=== PATIENT | male | born 1940 | race Caucasian/White ===

== ENCOUNTER → 2016-06-27 | Outpatient (CLI) | payer MEDICARE ==
[~2016-06-27] MED LIST: ASPIRIN325 M2 PO; AUGMENTIN 875 M1 TAB PO; CARAFATE1 G1 PO; COREG12.5 MG PO; COREG25 MG PO; LIPITOR80 MG PO; LISINOPRIL2.5 MG PO; LISINOPRIL40 MG PO; PREDNISONE10 MG PO; PRILOSEC40 MG PO; Peridex 473 ML473 ML PO; VENTOLIN H0.09 MG/AC INH; VIBRAMYCIN100 MG PO; VITAMIN B12500 MCG PO; VITAMIN D50000 I3 PO
== END | disposition home or self-care (01) ==
LOC: RESCLI 02:51
DX: I25.10 Atherosclerotic heart disease of native coronary artery without angina pectoris (principal); J45.30 Mild persistent asthma, uncomplicated; I10 Essential (primary) hypertension; E78.5 Hyperlipidemia, unspecified

== ENCOUNTER 2016-08-28 16:21 | Inpatient (IN) | payer MEDICARE ==
[~2016-08-28] VITALS: Ht 185.4 cm; Wt 91.6 kg
--- NOTE | ~2016-08-28 | CON ---
[place], [place] REPORT OF CONSULTATION NAME: RAVINDER LLANES UNIT #: [id number] ROOM: 421 DOCTOR: XUAN HOWARD,YUKI BIRTHDATE: [birth year] DOS: 08/29/2016 GASTROENDOSCOPIC REPORT HISTORY OF PRESENT ILLNESS: The patient is a 76-year-old who has presented with chief complaint of shortness of breath and had abnormal lab results H and H of 7 and 25, microcytic. The patient had to be admitted for definitive evaluation. Electrolytes, BUN and creatinine 20 and 1.3. Electrolytes were balanced. His B12 and folate within normal limit. Troponin level normal. His iron level was 17, low. Troponin repeatedly remained normal. CBC differential after transfusion, improved to 9 and 30. Chest x-ray, no pneumonia. PAST MEDICAL HISTORY: Associated with COPD, chronic renal insufficiency, congestive heart failure, shortness of breath, anemia, hypertension, subdural hematoma. PAST SURGICAL HISTORY: Coronary artery stents. SOCIAL HISTORY: Smoker up to 8 years ago, drinking of alcohol a case of beer and fifth of whiskey per week. ALLERGIES: No known medications. MEDICATIONS: Medication list has been reviewed including omeprazole and aspirin 325 mg. REVIEW OF SYSTEMS: HEENT: Denies double vision, blurred vision. RESPIRATORY: Prior to readmission shortness of breath, cough. CARDIOVASCULAR: Denies chest pain. DIGESTIVE SYSTEM: No hematemesis, no hematochezia. PHYSICAL EXAMINATION: VITAL SIGNS: Stable. HEENT: Head normocephalic, nontraumatic. Mouth and buccal mucosa benign. NECK: Supple, no thyromegaly, no cervical lymphadenopathy. CHEST: Symmetric anatomy, decreased air entry. No wheeze, no rhonchi or coughing. HEART: Normal sinus rhythm, no gallop, no murmur. ABDOMEN: Obese, soft. No hepato-organomegaly. Bowel sounds present. No pulsatile mass. EXTREMITIES: No cyanosis. No pedal edema. NEUROLOGIC: Alert, oriented to time, place and person. IMPRESSION: Shortness of breath with anemia, microcytic indices. OTHER ADJUNCTIVE DIAGNOSES: As outlined in paragraph past medical, surgical history including hypertension, coronary artery disease, COPD, renal insufficiency. [place], [place] REPORT OF CONSULTATION NAME: RAVINDER LLANES Bassam UNIT #: [id number] ROOM: 421 DOCTOR: XUAN HOWARD,YUKI BIRTHDATE: [birth year] IMPRESSION AND PLAN: Congestive for earlier, patient does not want to have a colonoscopic an EGD evaluation at this time, rightfully so he is too short of breath and coughing, he wants to wait until these issues are addressed and reassessment in future. YUKI GOVEA MD CM:CONSTR:REPORT OF CONSULTATION 04 08/30/16 0726 interface
--- NOTE | ~2016-08-28 | PR ---
[place], [place] PROGRESS NOTE NAME: RAVINDER LLANES UNIT #: [id number] ROOM: 421 DOCTOR: ELI LESTER MD BIRTHDATE: [birth year] DOS: 09/01/2016 SUBJECTIVE: He was seen and examined on 09/01/2016. He has been noted comfortable. The patient was planned for colonoscopy to be done today. He has been noted without any symptoms of chest pain or any abdominal pain. Shortness of breath and wheezing were noted partially decreased in the last 24 hours. OBJECTIVE: VITAL SIGNS: For the patient which has been recorded showed normal temperature, respiratory rate 20, heart rate 55-62, blood pressure 145/79-123/56. The pulse oxygen saturation on 2 liters nasal cannula 99% saturation recorded. HEENT: Shows no acute change. CARDIOVASCULAR SYSTEM: S1, S2 audible. LUNGS: Noted with mild wheezing. Moderate reduction in the breath sounds bilaterally. ABDOMEN: Soft and nontender. LABORATORY DATA: The PT, PTT for this patient was noted as normal today. BMP this morning noted with normal BUN and creatinine. Creatinine improved from 1.3 that was noted yesterday. CBC: Hemoglobin 9.7, hematocrit 32.7, platelet count were normal, WBC count was normal. IMPRESSION: 1. The patient who has been currently treated for this at this time for the acute exacerbation of bronchial asthma with acute tracheobronchitis. 2. Past history of nicotine dependence. The patient was noted positive improvement in the symptoms. 3. Incidental finding of 3 mm right upper lung pulmonary nodule. PLAN OF TREATMENT: Continue the current plan of management from the pulmonary standpoint, no changes in treatment to be done. Solu-Medrol dose could be decreased from tomorrow morning to 60 mg b.i.d. depends on further improvement in the respiratory symptoms. Usual care. All other supportive therapy, plan of management and care. [place], [place] PROGRESS NOTE NAME: RAVINDER LLANES UNIT #: [id number] ROOM: 421 DOCTOR: ELI LESTER MD BIRTHDATE: [birth year] ELI FUENTES MD CM:PNTRANS [phone] ELI MURRELL MD 09/02/16 0240 interface
--- NOTE | ~2016-08-28 | CON ---
[place], [place] REPORT OF CONSULTATION NAME: RAVINDER LLANES UNIT #: [id number] ROOM: 421 DOCTOR: YUKI GOVEA MD BIRTHDATE: [birth year] DOS: 09/01/2016 GASTROENDOSCOPIC REPORT HISTORY OF PRESENT ILLNESS: A 76-year-old who has been admitted through the Emergency Room with shortness of breath, anemia, hemoglobin of 7. Now I have been asked for assessment of the patient in this regard. The patient is status post transfusion. PAST MEDICAL HISTORY: Associated with systolic dysfunction, anxiety, depression, anemia, bronchial asthma. PAST SURGICAL HISTORY: Cardiac catheterization and stent, minor surgeries. SOCIAL HISTORY: smoker till 2007. MEDICATIONS: List has been reviewed. ALLERGIES: No known medication. REVIEW OF SYSTEMS: In general, HEENT: Denies double vision, blurred vision. RESPIRATORY: Admits to shortness of breath. CARDIOVASCULAR: Denies chest pain. DIGESTIVE SYSTEM: No hematemesis, no hematochezia. Anemic, however. Status post transfusion. PHYSICAL EXAMINATION: VITAL SIGNS: Stable. HEENT: Head normocephalic, nontraumatic. Mouth and buccal mucosa benign. NECK: Supple, no thyromegaly. CHEST: Symmetric anatomy, equal expansion. No wheeze, no rhonchi. HEART: Normal sinus rhythm, no gallop, no murmur. ABDOMEN: Soft. No hepato-organomegaly. Bowel sounds present. No pulsatile mass. EXTREMITIES: No cyanosis, no pedal edema. NEUROLOGIC: Alert, oriented to time, place and person. LABORATORY DATA: Reviewed. Records reviewed. His latest CBC, status post transfusion has improved to 9.7 and 32. Microcytic indices; however, . Platelet count has been normal. His basic metabolic panel: BUN and creatinine normal. Potassium of 3.2, has been identified. INR of 1.0 noticed. PLAN AND DISCUSSION: We are going to proceed with panendoscopy, colonoscopy. [place], [place] REPORT OF CONSULTATION NAME: RAVINDER LLANES Bassam UNIT #: [id number] ROOM: 421 DOCTOR: YUKI GOVEA MD BIRTHDATE: [birth year] YUKI GOVEA MD CM:CONSTR:REPORT OF CONSULTATION 1718 09/02/16 0553 interface
--- NOTE | ~2016-08-28 | CON ---
[place], [place] REPORT OF CONSULTATION NAME[id number] UNIT #: [id number] ROOM: 421 DOCTOR: EIL LESTER MD BIRTHDATE: [birth year] DOS: 08/31/2016 PULMONARY CONSULTATION EVALUATION AND MANAGEMENT REASON FOR CONSULTATION: To assess the patient for acute ongoing respiratory complaints of the patient with shortness of breath. HISTORY OF PRESENT ILLNESS: This is a 76-year-old white male, who has been admitted under the care of the Hospitalist Services on 08/28/2016. The patient presented to the hospital on 08/28/2016 in the Emergency Room. He has been noted with symptoms of increased shortness of breath, had been occurring for approximately 1 month. The patient was also noted to have symptoms of coughing, which are described mild to moderate without any sputum expectoration. He has been noted to have symptoms of chest congestion. The wheezing was also described at times. The patient denies any symptoms of hemoptysis. The patient has been noted with hemoglobin of 7.1 and other problems on assessment in the Emergency Room and was hospitalized for further medical management. REVIEW OF SYSTEMS: CONSTITUTIONAL: He does have symptoms of fatigue and tiredness. Denies symptoms of fever or chills. EYES: Denies any burning, redness, or tenderness. EARS, NOSE, AND THROAT: No symptoms of sore throat, hoarseness, otalgia, or postnasal drainage. CARDIOVASCULAR: The patient does have symptoms of some edema of the lower extremities at times. GASTROINTESTINAL: Denies nausea, vomiting, diarrhea, abdominal pain, hematemesis, melena, or hematochezia. SKIN: No lesions or rashes. CENTRAL NERVOUS SYSTEM: No dizziness, headache, or diplopia. Remaining systems were reviewed with the patient, they were noted all negative. PAST MEDICAL HISTORY: For this patient was noted as: 1. History of past known uncomplicated, mild persistent bronchial asthma. 2. Hypercholesterolemia. 3. Generalized anxiety disorder and depression. 4. Pulmonary nodules for this patient, which had been known with a past CT scan of the chest for this patient that was done for the patient in March CT scan of the chest. It shows a 3 mm nodule for the patient, it was noted in the right upper lobe as well with calcified granuloma noted in the spleen as well as some calcifications of the lymph nodes for the patient was also noted. Pleural thickening for this patient was also noted with evidence of subpleural blebs and some other areas of scarring. 5. History of generalized anxiety disorder and depression. PAST SURGICAL HISTORY: For this patient was noted as: 1. Cardiac catheterization and coronary artery stent insertion in 2007. 2. Removal of a cyst from the skin. SOCIAL HISTORY: For this patient was noted as the patient is , has 2 [place], [place] REPORT OF CONSULTATION NAME: RAVINDER LLANES UNIT #: [id number] ROOM: [facility] DOCTOR: ELI LESTER MD BIRTHDATE: [birth year] children. Smoking for this patient noted since the age of [age] years old, a pack of cigarettes per day until 2007. FAMILY HISTORY: For this patient, father at the age of 7272 years old from acute myocardial infarction. Mother at the age of 8282 years old from complication of ALS. HOME MEDICATIONS: For the patient were reported as use of Ventolin HFA inhaler, aspirin, Lipitor, lisinopril, vitamin B12, Coreg, omeprazole, and past use of QVAR which has not been continued for the patient. ALLERGIES: The drug allergy history for this patient was noted as no known drug allergies. PHYSICAL EXAMINATION: GENERAL: This is a 76-year-old white male, who has been currently noted to be awake and alert at the time of the assessment. VITAL SIGNS: Height of 6 feet 1 inch, weight of 202 pounds, BMI of 26.6. Vital signs shows the temperature recorded yesterday at 100.4 degrees Fahrenheit to normal temperature, respiratory rate 18-20, heart rate 78-85. Blood pressures 161/66, 136/76. The intake was 1340, output was 476 mL. Pulse oxygen saturation on 2 L nasal cannula was 96% saturation. HEENT: Examination shows head was atraumatic. NECK: Supple. CARDIOVASCULAR: S1, S2 are audible. LUNGS: For this patient was noted with moderate decreased breath sounds with diffuse expiratory wheezing noted in moderate severity. No crackles were heard. ABDOMEN: Soft, nontender, bowel sounds present. EXTREMITIES: Show no edema, clubbing, or cyanosis. CENTRAL NERVOUS SYSTEM: Cranial nerves 2-12 intact. SKIN: No lesions or rashes. MUSCULOSKELETAL: No acute deformities. LABORATORY DATA: CBC of the patient that was done for the patient on admission on 08/28/2016, hemoglobin 7.1, hematocrit 25, WBC count and platelet count were normal. BMP of the patient on 08/28/2016, BUN 20, creatinine 1.31. The BMP of the patient repeated again was noted normal BUN and creatinine for this patient on the 7th. CBC of the patient that was done this morning, hemoglobin 9.9, hematocrit 32.8, platelet count was normal, WBC count was normal after previous blood transfusion given on this admission. BMP this morning, BUN of 20, creatinine of 1.36 noted. The review of the Radiology data for this patient on this admission pertinent with the chest for this patient, chest x-ray of the patient that was done on 08/29/2016. The patient does not show any acute pulmonary infiltration with hyperinflation. Another x-ray repeated for this patient, which has been noted with increased pulmonary venous congestion possibility of congestive heart failure as well. IMPRESSION: [place], [place] REPORT OF CONSULTATION NAME: RAVINDER LLANES UNIT #: [id number] ROOM: 421 DOCTOR: [facility] BIRTH[facility]: [birth year] 1. The patient who has been currently noted with acute exacerbation of bronchial asthma with acute tracheobronchitis with past history of nicotine abuse. The patient has been noted with partial improvement in symptoms in the last 48 hours. The cough has been noted to be nonproductive at this time, most of the time, and noted mild to moderate in severity. 2. The patient with chronic lower back pain and other problems. 3. The patient with findings of a 3 mm right upper lung pulmonary nodule, and calcified lymphadenopathy is an old finding. PLAN OF TREATMENT: Continue current antibiotics, bronchodilators, use of Mucinex, and corticosteroids. The corticosteroid dose will be gradually reduced based on the improvement in the symptoms. The patient should show resolution of the current acute exacerbation in the next couple of days or hopefully prior to home discharge. Continued abstinence from tobacco use was advised. Other previous treatment plan and management as well. Usual care. Other supportive care and therapies. ELI FUENTES MD CM:CONSTR:REPORT OF CONSULTATION 1530 09/01/16 0129 interface
--- NOTE | ~2016-08-28 | O ---
[place], [place] OPERATIVE NOTE NAME: RAVINDER LLANES UNIT #: [id number] ROOM: 421 DOCTOR: XUAN HOWARDSANDEEPATLANTANIMA BIRTHDATE: [birth year] DOS: 09/01/2016 GASTROENDOSCOPIC REPORT INDICATIONS: A 76-year-old patient who has presented with chief complaint of anemia, status post multiple transfusions, COPD, respiratory insufficiency. PROCEDURE: Today's procedure part of investigation is EGD and colonoscopy in search of anemia etiology. REPORT: After putting the patient in the left lateral position and application of lubricant to the scope, the scope was introduced; thereafter, under direct visualization, I advanced through the length of esophagus without difficulty. A small hiatal hernia was noticed. Gastric pouch was entered, gastritis seen. Antral biopsy was obtained. Duodenal bulb, second and third part within normal limits. Scope was gradually withdrawn along the lesser curvature. The patient extubated, tolerated procedure well. IMPRESSION: Small hiatal hernia, gastritis, status post biopsy. PLAN AND DISCUSSION: We are going to proceed with colonoscopic eval. Thank you. GASTROENDOSCOPIC REPORT INDICATIONS: The patient is a 76-year-old who is status-post transfusion, anemia, hemoglobin of 7. PROCEDURE: Today's procedure part of investigation is colonoscopy, plus multiple polypectomy and tattoo marking. PREMEDICATION: Versed and Diprivan. SCOPE: Olympus forward-viewing colonoscope 10L video. REPORT: After putting the patient in left lateral position and application of lubricant to the scope, the scope was introduced; thereafter under direct visualization, I advanced through the length of colon without difficulty. A polypoid lesion in sigmoid colon with snare was polypectomized. The site was tattoo marked. Diverticulosis of moderate degree was identified. Base of the cecum explored. Sessile polypoid lesions in this area with cold cut snare polypectomy removed, samples recovered. The patient extubated, tolerated procedure well. IMPRESSION: Diverticulosis, large polypoid lesion in sigmoid colon, status-post polypectomy and tattoo marking. Multiple small sessile polyps at the base of cecum, status-post cold cut snare polypectomies. [place], [place] OPERATIVE NOTE NAME: RAVINDER LLANES Bassam UNIT #: [id number] ROOM: 421 DOCTOR: XUAN HOWARD,YUKI BIRTHDATE: [birth year] PLAN AND DISCUSSION: Awaiting biopsies, no blood thinners, no anticoagulation until Sunday at least and clinical reassessment. Awaiting pathology report. Thank you very much indeed. YUKI GOVEA MD CM:OPRECORD:OPERATIVE NOTE [id number] YUKI GOVEA MD 09/01/167 interface
--- NOTE | ~2016-08-28 | PR ---
[place], [place] PROGRESS NOTE NAME: RAVINDER LLANES UNIT #: [id number] ROOM: 421 DOCTOR: GINA MURRELL MD,ELI BIRTHDATE: [birth year] DOS: 09/02/2016 SUBJECTIVE: He was seen and examined on 09/02/2016. He has been noted comfortable with further reduction and improvement in the respiratory symptoms noted with improvement in the coughing and shortness of breath and others. OBJECTIVE: VITAL SIGNS: For the patient which has been recorded shows the temperature noted as normal, respiratory rate 20, heart rate 54, blood pressure 160/74. The pulse oxygen saturation on 4 liters nasal cannula 98% saturation. HEENT: Examination shows no acute change. CARDIOVASCULAR: S1, S2 is audible. LUNGS: Occasional wheezing. No crackles with significant improvement in air entry of yesterday. ABDOMEN: Soft, nontender. LABORATORY DATA: No labs were done today. IMPRESSION: Progressive resolution and improvement has been continued in the respiratory symptom for this patient at this time for acute exacerbation of chronic obstructive pulmonary disease, acute tracheobronchitis. PLAN OF TREATMENT: No changes in the plan of management from the pulmonary standpoint. Continuation of the current treatment plan and management. The patient may be considered for discharge from the pulmonary standpoint if necessary with oral antibiotics and tapering dose of prednisone and to continue his home medications as previously. Other supportive plan and management as well. Usual care. ELI FUENTES MD CM:PNTRANS [phone] ELI MURRELL MD 09/03/16 0145 interface
[2016-08-28 15:40] LABS: BASO % 0.5 % (0.0-1.0); EOS # 0.2 10*3/uL (0.0-0.4); EOS % 3.4 % (1.0-4.0); HEMOGLOBIN 7.1 g/dl (14.0-18.0); LYMPH # 0.9 10*3/uL (1.3-4.4); LYMPH % 15.6 % (27.0-41.0); MEAN CELL VOLUME 69.6 fl (80.0-94.0); MEAN CORPUSCULAR HGB 19.8 pg (27.0-31.0); MEAN CORPUSCULAR HGB CONC 28.4 g/dl (33.0-37.0); MEAN PLATELET VOLUME 10.6 fl (9.6-12.3); MONO # 0.5 10*3/uL (0.1-1.0); MONO % 8.3 % (3.0-9.0); NEUT % 71.7 % (47.0-73.0); PLATELET COUNT AUTOMATED 268 10*3/uL (130-400); RED BLOOD COUNT 3.59 10*6/uL (4.50-5.90); RED CELL DISTRI WIDTH 16.8 % (0-14.5); WHITE BLOOD COUNT 5.5 10*3/uL (4.8-10.8)
[2016-08-28 15:52] LABS: BUN 20 mg/dl (7-24); CARBON DIOXIDE 22 mmol/L (21-32); CHLORIDE 108 mmol/L (98-107); EST GLOM FILT AFRICAN AMERICAN > 60 ml/min; GLUCOSE 108 mg/dL (65-99); POTASSIUM 3.6 mmol/L (3.5-5.1); SODIUM 142 mmol/L (136-145)
[2016-08-28 15:57] LABS: FREE T4 1.09 ng/dl (0.76-1.46)
[~2016-08-28 16:21] MED LIST changes: -COREG25 MG PO; -LISINOPRIL40 MG PO; -PREDNISONE10 MG PO; -VIBRAMYCIN100 MG PO; -VITAMIN D50000 I3 PO
[2016-08-28] MEDS ORDERED: LISINOPRIL40 MG PO (16:28)
[2016-08-28 16:34] LABS: VITAMIN D, 25-HYDROXY 6.9 ng/mL (30-100)
[2016-08-28 16:35] LABS: FOLIC ACID 5.68 ng/mL (>5.38)
[2016-08-28 18:26] LABS: IRON 17 ug/dL (65-175); IRON SATURATION 4 %; UIBC 335 ug/dL (110-410)
[2016-08-28] MEDS ORDERED: COREG25 MG PO (18:54)
[2016-08-29 05:55] LABS: BUN 16 mg/dl (7-24); CARBON DIOXIDE 26 mmol/L (21-32); CHLORIDE 105 mmol/L (98-107); EST GLOM FILT AFRICAN AMERICAN > 60 ml/min; GLUCOSE 96 mg/dL (65-99); POTASSIUM 3.2 mmol/L (3.5-5.1); SODIUM 142 mmol/L (136-145)
[2016-08-29 06:04] LABS: BASO % 0.6 % (0.0-1.0); EOS # 0.2 10*3/uL (0.0-0.4); EOS % 2.7 % (1.0-4.0); HEMATOCRIT 30.3 % (42.0-52.0); LYMPH # 0.8 10*3/uL (1.3-4.4); LYMPH % 11.9 % (27.0-41.0); MEAN CORPUSCULAR HGB 22.1 pg (27.0-31.0); MEAN CORPUSCULAR HGB CONC 30.4 g/dl (33.0-37.0); MEAN PLATELET VOLUME 10.7 fl (9.6-12.3); MONO # 0.6 10*3/uL (0.1-1.0); MONO % 9.3 % (3.0-9.0); NEUT # 4.8 10*3/uL (2.3-7.9); NEUT % 75.3 % (47.0-73.0); PLATELET COUNT AUTOMATED 247 10*3/uL (130-400); RED BLOOD COUNT 4.17 10*6/uL (4.50-5.90); RED CELL DISTRI WIDTH 21.5 % (0-14.5); WHITE BLOOD COUNT 6.4 10*3/uL (4.8-10.8)
[2016-08-29 06:09] LABS: HEMOGLOBIN 9.2 g/dl (14.0-18.0); MEAN CELL VOLUME 72.7 fl (80.0-94.0)
[2016-08-29 06:24] LABS: INTERNATIONAL NORM RATIO 1.1 (2.0-3.5); PROTHROMBIN TIME 11.6 SECONDS (9.0-12.4)
[2016-08-30 06:13] LABS: BASO % 0.6 % (0.0-1.0); EOS # 0.1 10*3/uL (0.0-0.4); EOS % 1.9 % (1.0-4.0); HEMATOCRIT 31.1 % (42.0-52.0); HEMOGLOBIN 9.3 g/dl (14.0-18.0); LYMPH # 0.4 10*3/uL (1.3-4.4); LYMPH % 7.8 % (27.0-41.0); MEAN CELL VOLUME 73.3 fl (80.0-94.0); MEAN CORPUSCULAR HGB 21.9 pg (27.0-31.0); MEAN CORPUSCULAR HGB CONC 29.9 g/dl (33.0-37.0); MEAN PLATELET VOLUME 11.1 fl (9.6-12.3); MONO # 0.5 10*3/uL (0.1-1.0); MONO % 10.7 % (3.0-9.0); NEUT # 3.8 10*3/uL (2.3-7.9); NEUT % 78.6 % (47.0-73.0); PLATELET COUNT AUTOMATED 224 10*3/uL (130-400); RED BLOOD COUNT 4.24 10*6/uL (4.50-5.90); RED CELL DISTRI WIDTH 21.5 % (0-14.5); WHITE BLOOD COUNT 4.8 10*3/uL (4.8-10.8)
[2016-08-30 06:22] LABS: BUN 13 mg/dl (7-24); CARBON DIOXIDE 24 mmol/L (21-32); CHLORIDE 104 mmol/L (98-107); EST GLOM FILT AFRICAN AMERICAN > 60 ml/min; GLUCOSE 96 mg/dL (65-99); POTASSIUM 3.5 mmol/L (3.5-5.1); SODIUM 141 mmol/L (136-145)
[2016-08-30 09:25] LABS: BILIRUBIN 1+ (NEGATIVE); BLOOD 3+ (NEGATIVE); CLARITY CLOUDY (CLEAR); COLOR RED (YELLOW); GLUCOSE NEGATIVE (NEGATIVE); KETONE 1+ (NEGATIVE); LEUKO ESTERASE NEGATIVE (NEGATIVE); NITRITE NEGATIVE (NEGATIVE); PROTEIN 2+ (NEGATIVE)
[2016-08-30 09:29] LABS: CKMB 0.6 ng/ml (0.5-3.6); TROPONIN I 0.044 ng/ml (<0.045)
[2016-08-30 09:58] LABS: RBC TNTC rbc/hpf (0-2); WBC 21-30 wbc/hpf (0-5)
[2016-08-31 08:21] LABS: BASO % 0.2 % (0.0-1.0); HEMATOCRIT 32.8 % (42.0-52.0); HEMOGLOBIN 9.9 g/dl (14.0-18.0); LYMPH # 0.4 10*3/uL (1.3-4.4); LYMPH % 5.9 % (27.0-41.0); MEAN CELL VOLUME 72.6 fl (80.0-94.0); MEAN CORPUSCULAR HGB 21.9 pg (27.0-31.0); MEAN CORPUSCULAR HGB CONC 30.2 g/dl (33.0-37.0); MONO # 0.2 10*3/uL (0.1-1.0); MONO % 3.5 % (3.0-9.0); NEUT % 89.9 % (47.0-73.0); PLATELET COUNT AUTOMATED 250 10*3/uL (130-400); RED BLOOD COUNT 4.52 10*6/uL (4.50-5.90); RED CELL DISTRI WIDTH 21.6 % (0-14.5); WHITE BLOOD COUNT 6.6 10*3/uL (4.8-10.8)
[2016-08-31 08:46] LABS: BUN 20 mg/dl (7-24); CARBON DIOXIDE 24 mmol/L (21-32); CHLORIDE 103 mmol/L (98-107); CKMB 1.1 ng/ml (0.5-3.6); CPK 415 U/L (39-308); EST GLOM FILT AFRICAN AMERICAN > 60 ml/min; GLUCOSE 139 mg/dL (65-99); POTASSIUM 3.7 mmol/L (3.5-5.1); SODIUM 141 mmol/L (136-145); TROPONIN I 0.025 ng/ml (<0.045)
[2016-09-01 06:01] LABS: BASO % 0.1 % (0.0-1.0); HEMATOCRIT 32.7 % (42.0-52.0); HEMOGLOBIN 9.7 g/dl (14.0-18.0); IG # 0.1 10*3/uL (0.0-0.1); LYMPH # 0.5 10*3/uL (1.3-4.4); LYMPH % 5.4 % (27.0-41.0); MEAN CORPUSCULAR HGB 21.7 pg (27.0-31.0); MEAN CORPUSCULAR HGB CONC 29.7 g/dl (33.0-37.0); MEAN PLATELET VOLUME 11.1 fl (9.6-12.3); MONO # 0.3 10*3/uL (0.1-1.0); MONO % 4.1 % (3.0-9.0); NEUT # 7.5 10*3/uL (2.3-7.9); NEUT % 89.7 % (47.0-73.0); PLATELET COUNT AUTOMATED 252 10*3/uL (130-400); RED BLOOD COUNT 4.48 10*6/uL (4.50-5.90); RED CELL DISTRI WIDTH 21.9 % (0-14.5); WHITE BLOOD COUNT 8.3 10*3/uL (4.8-10.8)
[2016-09-01 06:27] LABS: BUN 20 mg/dl (7-24); CARBON DIOXIDE 21 mmol/L (21-32); CHLORIDE 104 mmol/L (98-107); EST GLOM FILT AFRICAN AMERICAN > 60 ml/min; GLUCOSE 124 mg/dL (65-99); POTASSIUM 3.2 mmol/L (3.5-5.1); SODIUM 141 mmol/L (136-145)
[2016-09-01 06:44] LABS: PROTHROMBIN TIME 10.5 SECONDS (9.0-12.4)
[2016-09-02] MEDS ORDERED: VIBRAMYCIN100 MG PO (14:12)
[2016-09-02] MEDS ORDERED: VITAMIN D50000 I3 PO (14:12)
[2016-09-02] MEDS ORDERED: PREDNISONE10 MG PO (14:12)
== END 2016-09-02 14:40 | disposition home or self-care (01) | DRG 191 ==
LOC: EDSTATUS 16:21 → ED 16:21 → 4E 17:33 → EDHOLD 17:33 → 4E 17:50
PROVIDERS: Emergency Medicine; Family Medicine; Internal Medicine
PROC: 30233N1 Transfusion of Nonautologous Red Blood Cells into Peripheral Vein, Percutaneous Approach (ICD-10-PCS; principal; 2016-08-28)
PROC: 0DB68ZX Excision of Stomach, Via Natural or Artificial Opening Endoscopic, Diagnostic (ICD-10-PCS; 2016-09-01)
PROC: 0DBN8ZX Excision of Sigmoid Colon, Via Natural or Artificial Opening Endoscopic, Diagnostic (ICD-10-PCS; 2016-09-01)
DX: J44.1 Chronic obstructive pulmonary disease with (acute) exacerbation (principal); J45.901 Unspecified asthma with (acute) exacerbation; N18.3 Chronic kidney disease, stage 3 (moderate); I13.0 Hypertensive heart and chronic kidney disease with heart failure and stage 1 through stage 4 chronic kidney disease, or unspecified chronic kidney disease; I50.20 Unspecified systolic (congestive) heart failure; J44.0 Chronic obstructive pulmonary disease with (acute) lower respiratory infection; D50.9 Iron deficiency anemia, unspecified; J20.9 Acute bronchitis, unspecified; K29.70 Gastritis, unspecified, without bleeding; I25.10 Atherosclerotic heart disease of native coronary artery without angina pectoris; G89.29 Other chronic pain; M54.5 Low back pain; F41.9 Anxiety disorder, unspecified; E78.5 Hyperlipidemia, unspecified; F32.9 Major depressive disorder, single episode, unspecified; E55.9 Vitamin D deficiency, unspecified; K44.9 Diaphragmatic hernia without obstruction or gangrene; I44.7 Left bundle-branch block, unspecified; K57.90 Diverticulosis of intestine, part unspecified, without perforation or abscess without bleeding; Z98.42 Cataract extraction status, left eye; Z95.818 Presence of other cardiac implants and grafts; Z72.89 Other problems related to lifestyle; Z87.891 Personal history of nicotine dependence; Z84.89 Family history of other specified conditions; Z79.899 Other long term (current) drug therapy; Z79.82 Long term (current) use of aspirin; I25.2 Old myocardial infarction

== ENCOUNTER 2016-09-14 11:46 | Emergency (ER) | payer MEDICARE ==
[~2016-09-14] VITALS: Ht 185.4 cm; Wt 95.3 kg
[~2016-09-14 11:46] MED LIST changes: +COREG25 MG PO; +LISINOPRIL40 MG PO; +PREDNISONE10 MG PO; +VIBRAMYCIN100 MG PO; +VITAMIN D50000 I3 PO
[2016-09-14 12:14] LABS: BASO % 0.1 % (0.0-1.0); EOS # 0.1 10*3/uL (0.0-0.4); EOS % 0.4 % (1.0-4.0); HEMATOCRIT 35.4 % (42.0-52.0); HEMOGLOBIN 10.6 g/dl (14.0-18.0); IG # 0.1 10*3/uL (0.0-0.1); LYMPH # 0.9 10*3/uL (1.3-4.4); LYMPH % 7.6 % (27.0-41.0); MEAN CELL VOLUME 76.3 fl (80.0-94.0); MEAN CORPUSCULAR HGB 22.8 pg (27.0-31.0); MEAN CORPUSCULAR HGB CONC 29.9 g/dl (33.0-37.0); MEAN PLATELET VOLUME 10.2 fl (9.6-12.3); MONO # 0.4 10*3/uL (0.1-1.0); MONO % 3.4 % (3.0-9.0); NEUT # 9.9 10*3/uL (2.3-7.9); PLATELET COUNT AUTOMATED 246 10*3/uL (130-400); RED BLOOD COUNT 4.64 10*6/uL (4.50-5.90); RED CELL DISTRI WIDTH 25.7 % (0-14.5); WHITE BLOOD COUNT 11.2 10*3/uL (4.8-10.8)
[2016-09-14 12:21] LABS: INTERNATIONAL NORM RATIO 0.9 (2.0-3.5); PROTHROMBIN TIME 9.9 SECONDS (9.0-12.4)
[2016-09-14 12:28] LABS: ALBUMIN 3.1 gm/dl (3.1-4.5); ALKALINE PHOSPHATASE 91 U/L (45-117); BILIRUBIN, TOTAL 0.7 mg/dl (0.2-1.0); BUN 18 mg/dl (7-24); CARBON DIOXIDE 26 mmol/L (21-32); CHLORIDE 105 mmol/L (98-107); EST GLOM FILT AFRICAN AMERICAN > 60 ml/min; GLUCOSE 113 mg/dL (65-99); POTASSIUM 3.9 mmol/L (3.5-5.1); SGOT/AST 13 IU/L (3-35); SGPT/ALT 23 U/L (12-78); SODIUM 141 mmol/L (136-145); TOTAL PROTEIN 6.5 gm/dL (6.4-8.2)
[2016-09-14 12:33] LABS: BILIRUBIN NEGATIVE (NEGATIVE); BLOOD 3+ (NEGATIVE); CLARITY CLOUDY (CLEAR); COLOR RED (YELLOW); GLUCOSE NEGATIVE (NEGATIVE); KETONE NEGATIVE (NEGATIVE); NITRITE NEGATIVE (NEGATIVE); PROTEIN 2+ (NEGATIVE); SPECIFIC GRAVITY 1.025 (1.005-1.030)
[2016-09-14 12:47] LABS: LEUKO ESTERASE NEGATIVE (NEGATIVE)
[2016-09-14 12:48] LABS: RBC TNTC rbc/hpf (0-2); URINE REFLEX COMMENT YES (NO); WBC 41-50 wbc/hpf (0-5)
== END 2016-09-14 17:04 | disposition home or self-care (01) ==
LOC: ED 11:46
PROVIDERS: Emergency Medicine
DX: N39.0 Urinary tract infection, site not specified (principal); R31.9 Hematuria, unspecified; I12.9 Hypertensive chronic kidney disease with stage 1 through stage 4 chronic kidney disease, or unspecified chronic kidney disease; N18.3 Chronic kidney disease, stage 3 (moderate); I99.8 Other disorder of circulatory system; J44.9 Chronic obstructive pulmonary disease, unspecified; E78.5 Hyperlipidemia, unspecified; Z79.82 Long term (current) use of aspirin; Z79.899 Other long term (current) drug therapy

== ENCOUNTER → 2016-10-02 | Outpatient (CLI) | payer MEDICARE | END | disposition home or self-care (01) | LOC: RESCLI 02:03 | DX: I11.0 Hypertensive heart disease with heart failure (principal); J44.9 Chronic obstructive pulmonary disease, unspecified; I25.10 Atherosclerotic heart disease of native coronary artery without angina pectoris; E55.9 Vitamin D deficiency, unspecified; R31.9 Hematuria, unspecified; N32.89 Other specified disorders of bladder; Z87.891 Personal history of nicotine dependence ==

== ENCOUNTER 2016-10-20 18:19 | Emergency (ER) | payer MEDICARE ==
[~2016-10-20] VITALS: Ht 185.4 cm; Wt 95.3 kg
[2016-10-20 19:13] LABS: BILIRUBIN NEGATIVE (NEGATIVE); BLOOD 2+ (NEGATIVE); CLARITY SL CLOUDY (CLEAR); COLOR YELLOW (YELLOW); GLUCOSE NEGATIVE (NEGATIVE); KETONE NEGATIVE (NEGATIVE); LEUKO ESTERASE NEGATIVE (NEGATIVE); NITRITE NEGATIVE (NEGATIVE); PH 5.5 (5.0-9.0); PROTEIN 3+ (NEGATIVE); SPECIFIC GRAVITY >= 1.030 (1.005-1.030); UROBILINOGEN 0.2 E.U./dl (0.2-1.0)
[2016-10-20 19:24] LABS: BACTERIA 4+; MUCOUS TRACE; URINE REFLEX COMMENT YES (NO)
[2016-10-20 19:42] LABS: BASO # 0.1 10*3/uL (0.0-0.1); BASO % 0.6 % (0.0-1.0); EOS # 0.1 10*3/uL (0.0-0.4); HEMATOCRIT 38.9 % (42.0-52.0); HEMOGLOBIN 12.1 g/dl (14.0-18.0); LYMPH # 1.1 10*3/uL (1.3-4.4); LYMPH % 10.1 % (27.0-41.0); MEAN CELL VOLUME 78.6 fl (80.0-94.0); MEAN CORPUSCULAR HGB 24.4 pg (27.0-31.0); MEAN CORPUSCULAR HGB CONC 31.1 g/dl (33.0-37.0); MEAN PLATELET VOLUME 10.3 fl (9.6-12.3); MONO # 0.6 10*3/uL (0.1-1.0); MONO % 5.4 % (3.0-9.0); NEUT # 8.6 10*3/uL (2.3-7.9); NEUT % 82.5 % (47.0-73.0); PLATELET COUNT AUTOMATED 261 10*3/uL (130-400); RED BLOOD COUNT 4.95 10*6/uL (4.50-5.90); RED CELL DISTRI WIDTH 23.8 % (0-14.5); WHITE BLOOD COUNT 10.4 10*3/uL (4.8-10.8)
[2016-10-20 20:01] LABS: ALBUMIN 3.3 gm/dl (3.1-4.5); ALKALINE PHOSPHATASE 107 U/L (45-117); BILIRUBIN, TOTAL 0.7 mg/dl (0.2-1.0); BUN 16 mg/dl (7-24); CARBON DIOXIDE 25 mmol/L (21-32); CHLORIDE 108 mmol/L (98-107); EST GLOM FILT AFRICAN AMERICAN > 60 ml/min; GLUCOSE 124 mg/dL (65-99); POTASSIUM 3.7 mmol/L (3.5-5.1); SGOT/AST 15 IU/L (3-35); SGPT/ALT 14 U/L (12-78); SODIUM 141 mmol/L (136-145); TOTAL PROTEIN 6.4 gm/dL (6.4-8.2)
[2016-10-20] MEDS ORDERED: DITROPAN XL5 MG PO (20:04)
== END 2016-10-20 20:18 | disposition home or self-care (01) ==
LOC: ED 18:19
PROVIDERS: Registered Nurse
DX: N32.89 Other specified disorders of bladder (principal); C67.9 Malignant neoplasm of bladder, unspecified; Z95.5 Presence of coronary angioplasty implant and graft; Z87.891 Personal history of nicotine dependence; Z98.42 Cataract extraction status, left eye; Z79.82 Long term (current) use of aspirin; Z79.899 Other long term (current) drug therapy

== ENCOUNTER → 2017-04-02 | Outpatient (CLI) | payer MEDICARE ==
[~2017-04-02] MED LIST changes: +DITROPAN XL5 MG PO
== END | disposition home or self-care (01) ==
LOC: RESCLI 01:29
DX: J44.9 Chronic obstructive pulmonary disease, unspecified (principal); E78.4 Other hyperlipidemia; K21.9 Gastro-esophageal reflux disease without esophagitis; I50.20 Unspecified systolic (congestive) heart failure; I11.0 Hypertensive heart disease with heart failure; E55.9 Vitamin D deficiency, unspecified; I25.10 Atherosclerotic heart disease of native coronary artery without angina pectoris

== ENCOUNTER → 2017-09-25 | Outpatient (CLI) | payer MEDICARE ==
[2017-09-25 12:05] LABS: ALBUMIN 3.5 gm/dl (3.1-4.5); ALKALINE PHOSPHATASE 146 U/L (45-117); BUN 13 mg/dl (7-24); CHLORIDE 106 mmol/L (98-107); CHOLESTEROL 145 mg/dL (<200); CREATININE 1.32 mg/dL (0.70-1.30); HDL CHOLESTEROL 42 mg/dl (40-60); LDL CHOLESTEROL 80 mg/dL (9-159); POTASSIUM 4.1 mmol/L (3.5-5.1); SGOT/AST 19 IU/L (3-35); SGPT/ALT 20 U/L (12-78); SODIUM 140 mmol/L (136-145); TOTAL PROTEIN 7.3 gm/dL (6.4-8.2); TRIGLYCERIDES 116 mg/dl (<150); VLDL CHOLESTEROL 23 mg/dL (6-40)
[2017-09-25 12:06] LABS: BASO # 0.1 10*3/uL (0.0-0.1); BASO % 0.8 % (0.0-1.0); EOS # 0.2 10*3/uL (0.0-0.4); EOS % 2.5 % (1.0-4.0); HEMATOCRIT 36.8 % (42.0-52.0); HEMOGLOBIN 11.4 g/dl (14.0-18.0); LYMPH # 1.5 10*3/uL (1.3-4.4); LYMPH % 20.9 % (27.0-41.0); MEAN CELL VOLUME 78.1 fl (80.0-94.0); MEAN CORPUSCULAR HGB 24.2 pg (27.0-31.0); MEAN PLATELET VOLUME 10.9 fl (9.6-12.3); MONO # 0.7 10*3/uL (0.1-1.0); MONO % 9.4 % (3.0-9.0); NEUT # 4.8 10*3/uL (2.3-7.9); PLATELET COUNT AUTOMATED 249 10*3/uL (130-400); RED BLOOD COUNT 4.71 10*6/uL (4.50-5.90); RED CELL DISTRI WIDTH 16.1 % (0-14.5); WHITE BLOOD COUNT 7.3 10*3/uL (4.8-10.8)
[2017-09-25 12:42] LABS: VITAMIN D, 25-HYDROXY 21.3 ng/mL (30-100)
== END | disposition home or self-care (01) ==
LOC: LAB 00:16 → RESCLI 00:16
PROVIDERS: Internal Medicine Hospice and Palliative Medicine
DX: I10 Essential (primary) hypertension (principal); E55.9 Vitamin D deficiency, unspecified; I50.42 Chronic combined systolic (congestive) and diastolic (congestive) heart failure; F43.10 Post-traumatic stress disorder, unspecified; R53.83 Other fatigue

== ENCOUNTER → 2018-04-02 | Outpatient (CLI) | payer MEDICARE ==
[2018-04-02 11:54] LABS: IRON 43 ug/dL (65-175); TOTAL IRON BINDING CAPACITY 419 ug/dl (250-450)
== END | disposition home or self-care (01) ==
LOC: RESCLI 02:13
PROVIDERS: Internal Medicine
DX: I11.0 Hypertensive heart disease with heart failure (principal); I50.42 Chronic combined systolic (congestive) and diastolic (congestive) heart failure; I25.10 Atherosclerotic heart disease of native coronary artery without angina pectoris; F43.10 Post-traumatic stress disorder, unspecified; E55.9 Vitamin D deficiency, unspecified; J44.9 Chronic obstructive pulmonary disease, unspecified; E78.5 Hyperlipidemia, unspecified; K21.9 Gastro-esophageal reflux disease without esophagitis; C67.2 Malignant neoplasm of lateral wall of bladder; R53.83 Other fatigue; G25.0 Essential tremor; D50.9 Iron deficiency anemia, unspecified; Z79.82 Long term (current) use of aspirin; Z79.899 Other long term (current) drug therapy; Z88.8 Allergy status to other drugs, medicaments and biological substances

== ENCOUNTER → 2018-06-11 | Outpatient (CLI) | payer MEDICARE ==
--- NOTE | ~2018-06-11 | EKG ---
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
[2018-06-11 10:40] LABS: BASO # 0.1 10*3/uL (0.0-0.1); BASO % 0.7 % (0.0-1.0); EOS # 0.2 10*3/uL (0.0-0.4); HEMATOCRIT 40.7 % (42.0-52.0); HEMOGLOBIN 13.6 g/dl (14.0-18.0); LYMPH # 1.7 10*3/uL (1.3-4.4); LYMPH % 19.8 % (27.0-41.0); MEAN CELL VOLUME 83.9 fl (80.0-94.0); MEAN CORPUSCULAR HGB CONC 33.4 g/dl (33.0-37.0); MONO # 0.8 10*3/uL (0.1-1.0); MONO % 8.8 % (3.0-9.0); NEUT # 5.9 10*3/uL (2.3-7.9); NEUT % 68.4 % (47.0-73.0); PLATELET COUNT AUTOMATED 226 10*3/uL (130-400); RED BLOOD COUNT 4.85 10*6/uL (4.50-5.90); RED CELL DISTRI WIDTH 16.9 % (0-14.5); WHITE BLOOD COUNT 8.6 10*3/uL (4.8-10.8)
== END | disposition home or self-care (01) ==
LOC: RESCLI 04:53
PROVIDERS: Internal Medicine
DX: I49.9 Cardiac arrhythmia, unspecified (principal); D50.9 Iron deficiency anemia, unspecified; R53.83 Other fatigue; R94.31 Abnormal electrocardiogram [ECG] [EKG]; I11.0 Hypertensive heart disease with heart failure; I50.42 Chronic combined systolic (congestive) and diastolic (congestive) heart failure; I25.10 Atherosclerotic heart disease of native coronary artery without angina pectoris; F43.10 Post-traumatic stress disorder, unspecified; E55.9 Vitamin D deficiency, unspecified; J44.9 Chronic obstructive pulmonary disease, unspecified; E78.49 Other hyperlipidemia; K21.9 Gastro-esophageal reflux disease without esophagitis; C67.2 Malignant neoplasm of lateral wall of bladder; E66.3 Overweight; G25.0 Essential tremor; E78.5 Hyperlipidemia, unspecified; F10.10 Alcohol abuse, uncomplicated; Z79.82 Long term (current) use of aspirin; Z79.899 Other long term (current) drug therapy; Z88.8 Allergy status to other drugs, medicaments and biological substances; Z87.891 Personal history of nicotine dependence

== ENCOUNTER → 2018-06-27 | Outpatient (CLI) | payer MEDICARE ==
[~2018-06-27] MED LIST changes: +APRESOLINE10 MG PO; +B-12500 MC1 PO; +COLACE100 MG PO; +IRON325 M3 PO; +PRESERVISION A1 EACH PO; +PRILOSEC20 M1 PO; -PRILOSEC40 MG PO; +QVAR REDIHALE10.6 GM INH; +VITAMIN D22000 UNIT PO
== END | disposition home or self-care (01) ==
LOC: CARD 14:00
DX: I50.42 Chronic combined systolic (congestive) and diastolic (congestive) heart failure (principal); I49.9 Cardiac arrhythmia, unspecified

== ENCOUNTER → 2018-10-07 | Outpatient (CLI) | payer MEDICARE | END | disposition home or self-care (01) | LOC: RESCLI 12:51 | DX: I13.0 Hypertensive heart and chronic kidney disease with heart failure and stage 1 through stage 4 chronic kidney disease, or unspecified chronic kidney disease (principal); N18.3 Chronic kidney disease, stage 3 (moderate); I50.42 Chronic combined systolic (congestive) and diastolic (congestive) heart failure; I25.10 Atherosclerotic heart disease of native coronary artery without angina pectoris; F43.10 Post-traumatic stress disorder, unspecified; E55.9 Vitamin D deficiency, unspecified; J44.9 Chronic obstructive pulmonary disease, unspecified; E78.49 Other hyperlipidemia; K21.9 Gastro-esophageal reflux disease without esophagitis; C67.2 Malignant neoplasm of lateral wall of bladder; R53.83 Other fatigue; E66.3 Overweight; G25.0 Essential tremor; D50.9 Iron deficiency anemia, unspecified; Z79.82 Long term (current) use of aspirin; Z79.899 Other long term (current) drug therapy; Z88.8 Allergy status to other drugs, medicaments and biological substances; Z87.891 Personal history of nicotine dependence ==

== ENCOUNTER 2018-12-29 06:43 | Inpatient (IN) | payer MEDICARE ==
[2018-12-29] VITALS (10 sets, daily range): BP systolic 126–194; BP diastolic 72–112
[~2018-12-29] VITALS: Ht 185.4 cm; Wt 93.6 kg
--- NOTE | ~2018-12-29 | CON ---
[place], [place] REPORT OF CONSULTATION NAME: RAVINDER LLANES [facility] #: [id number] UNIT #: [id number] ROOM: 407 DOCTOR: ELI LESTER MD BIRTHDATE: [birth year] DOS: 12/30/2018 PULMONARY CONSULTATION, EVALUATION AND MANAGEMENT REASON FOR CONSULTATION: Assess the patient for acute pneumonia. HISTORY OF PRESENT ILLNESS: This is a 78-year-old white male who has been known to me with a regular office visit for the medical management of history of bronchial asthma that has been treated with the respiratory medication. The patient has a short acting bronchodilators and corticosteroids. He has been admitted to the hospital under care of hospitalist service on 12/29/2018. The patient reporting symptoms of having chest pain, which is described in the lower anterior portion of the chest without radiation this morning. He has been watching the TV. The pain was described most of the time mild to moderate. The pain was relieved as the patient took the nitroglycerin and also stating that he has taken the Mylanta without any help with the pain. He came to the hospital for further assessment. The patient denies symptoms of chest pain at the present time. Denies symptoms of hemoptysis. He does have a mild cough, not noted any severe. Shortness of breath occurs with exertion. There were symptoms of wheezing stated. REVIEW OF SYSTEMS: CONSTITUTIONAL SYMPTOM: Fatigue and tiredness noted. Denies any symptoms of fever or chills. EYES: Denies any burning, redness, or tenderness. EARS, NOSE, THROAT SYMPTOMS: Denies sore throat, hoarseness, otalgia, postnasal drainage, or epistaxis. CARDIOVASCULAR system: Denies anginal pain, reporting some edema of the extremities. GENITOURINARY SYMPTOM: No dysuria, suprapubic pain, or hematuria. GASTROINTESTINAL SYMPTOM: Denies dysphagia, nausea, vomiting, diarrhea, abdominal pain, hematemesis, melena, or hematochezia. SKIN: No abnormal lesions or rashes. CENTRAL NERVOUS SYSTEM: Denies diplopia, syncopal episodes. Remaining systems were reviewed. They were noted all negative. PAST MEDICAL HISTORY: 1. Uncomplicated mild persistent bronchial asthma. 2. Combined congestive heart failure, systolic and diastolic dysfunction. 3. History of bladder cancer. 4. Hyperlipidemia. 5. Essential hypertension. 6. Coronary artery disease. 7. PTSD. 8. History of subdural hematoma. 9. Vitamin D deficiency. PAST SURGICAL HISTORY: Cardiac catheterization, coronary artery stents insertion in 2007 and acute removal of a skin cyst. [place], [place] REPORT OF CONSULTATION NAME: RAVINDER LLANES UNIT #: [id number] ROOM: 407 DOCTOR: ELI LESTER MD BIRTHDATE: [birth year] SOCIAL HISTORY: The patient lives at home. Denies any history of alcohol use, illicit drug use. Tobacco use reported as 1 pack of cigarettes a day since teenager that was discontinued in 2007. History of alcohol use was also noted previous in 2017, drinking beer and whiskey once a week. FAMILY HISTORY: Reported that father at 60 years of surgical complications. Mother at 60 years with complication of ALS. HOME MEDICATIONS: Listed as aspirin, Lipitor, QVAR RediHaler, ProAir HFA inhaler, Coreg, vitamin D, ferrous sulfate, lisinopril, omeprazole, and hydralazine. CURRENT MEDICATIONS: Administered on this hospitalization were noted as use of B12, omeprazole, Lipitor, DuoNeb, Pulmicort Respules, ferrous sulfate, vitamin D, hydralazine, Coreg, lisinopril, aspirin, Lovenox for DVT prophylaxis, Vicodin and some others. DRUG ALLERGY HISTORY: The patient noted as no known drug allergies. PHYSICAL EXAMINATION: GENERAL: A 78-year-old male patient currently noted comfortably sitting on the bed this morning of assessment. Height of 6 feet 1 inch, weight of 28, BUN 27.4. VITAL SIGNS: Normal temperature, respiratory rate 18-22, heart rate 75-67, blood pressure 126/72-109/71. Admission, blood pressure recorded 176/112. A pulse oxygen saturation recorded on admission on room air is 94-99% saturation. HEAD, EYES, EARS, NOSE, AND THROAT: Examination shows head was atraumatic. EYES: No icterus. NECK: Supple. CARDIOVASCULAR SYSTEM: S1, S2 audible. LUNGS: Noted clear to auscultation bilaterally. ABDOMEN: Soft, nontender. Bowel sounds present. EXTREMITIES: The patient with minimal edema of the extremities. MUSCULOSKELETAL: Without acute deformities. CENTRAL NERVOUS SYSTEM: Noted with standard intact. No focal deficit. LABORATORY AND DIAGNOSTIC DATA: PTT that was done yesterday was normal. CMP yesterday, normal BUN and creatinine. Glucose 153. Troponin normal. CBC yesterday count 16.2, hemoglobin, hematocrit and platelet count remains normal. Additional sets of troponin noted as normal. Lactic acid noted 2.3. PT/INR noted as normal. PT/INR and PTT normal yesterday this morning as well. CBC: WBC count 12.2, otherwise noted as normal study. CMP of this morning with BUN 22, creatinine 1.31. Review of the radiology data the chest x-ray that was done, 1 view on 12/29/2018 was reviewed, shows increased interstitial edema, pulmonary venous congestion markings. The CT scan chest that was done without contrast review shows chronic asbestos noted left upper and the left lower lobe as well. There were no significant pleural fluid or other pulmonary abnormalities seen. [place], [place] REPORT OF CONSULTATION NAME: RAVINDER LLANES UNIT #: [id number] ROOM: 407 DOCTOR: ELI LESTER MD BIRTHDATE: [birth year] IMPRESSION: 1. The patient currently admitted to the hospital, was noted with finding highly suggestive of possibility of congestive heart failure more than pneumonia. 2. History of bronchial asthma remained stable without any evidence of acute exacerbation. 3. Elevation of creatinine from admission, creatinine 1.3., may be related to use of diuretics. PLAN OF TREATMENT: At this time, the patient would not require any antibiotic. There were no signs or symptoms suggestive of acute pneumonia. Maximize the medical management for the congestive heart failure with further assessment. The patient already has consultation by the Cardiology Services, follow the recommendations of treatment. Further change in treatment will be recommended based on progression of his respiratory illness. ELI FUENTES MD CM:CONSTR:REPORT OF CONSULTATION 1242 01/07/19 1048 interface
--- NOTE | ~2018-12-29 | EKG ---
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1940 Requested By: MAXIMINO KEARNEY Order Number: [id number] Reading MD: Deepika Tamez MD Measurements Intervals [place] Rate: 96 P: 32 RI: 181 QRS: 51 QRSD: 109 T: 260 QT: 363 QTc: 459 Interpretive Statements Sinus arrhythmia Incomplete left bundle branch block Inferior infarct, age indeterminate Compared to ECG 06/11/2018 10:36:01 Left bundle-branch block now present Myocardial infarct finding now present Sinus rhythm no longer present Atrial premature complex(es) no longer present Intraventricular conduction delay no longer present Electronically Signed On 12-30-2018 8:40:19 PDT by Deepika Tamez MD CM:EKGRPT:ELECTROCARDIOGRAM REPORT [id number] MAXIMINO ZARATE DRAFT REPORT MAXIMINO KEARNEY DO
--- NOTE | ~2018-12-29 | PR ---
[place], [place] PROGRESS NOTE NAME: RAVINDER LLANES UNIT #: [id number] ROOM: 407 DOCTOR: CARROL RAMIREZ DO BIRTHDATE: [birth year] DOS: 12/31/2018 PULMONARY PROGRESS NOTE SUBJECTIVE: The patient was noted comfortable at this time, resting on the bed, reports that he is feeling much better. Shortness of breath is no longer present, has no other complaints at this time. OBJECTIVE: GENERAL: In no acute distress, lying comfortably in bed. VITAL SIGNS: Normal temperature, heart rate 70, respiratory rate 20, blood pressure 134/76, oxygen saturation 93% on room air. HEENT: Atraumatic, normocephalic. Eyes, no icterus. NECK: Supple. CARDIOVASCULAR: S1, S2 audible. LUNGS: Noted clear to auscultation bilaterally. ABDOMEN: Soft, nontender. Bowel sounds are present. EXTREMITIES: Show trace edema of the bilateral lower extremities. MUSCULOSKELETAL: Without acute deformities. CENTRAL NERVOUS SYSTEM: Noted with standard tap. No focal deficits. LABORATORY DATA: Chest x-ray today showed lungs are adequately inflated without pleural effusion or checks of pleural mass. There is no lung consolidation, no lung mass. There is a calcified mediastinal lymphadenopathy typical for old granulomatous disease. Lungs show chronic appearing changes. Pulmonary vasculature is not congested and there is no cardiomegaly. Left lower extremity ultrasound yesterday was negative for DVT. Myocardial perfusion scan yesterday also showed an inferomedial, inferolateral myocardial scar. White blood cell count is 9.7. BUN and creatinine was 17 and 1.27 respectively. IMPRESSION: 1. Acute on chronic heart failure with reduced ejection fraction with stage 1 diastolic dysfunction. 2. History of bronchial asthma, which remains stable. 3. Acute renal failure --returned to baseline. PLAN OF TREATMENT: No changes in the plan of care at this time. Discontinue antibiotics. The patient can be discharged from Pulmonary standpoint. Carrol Ramirez DO [place], [place] PROGRESS NOTE NAME: RAVINDER LLANES UNIT #: [id number] ROOM: 407 DOCTOR: CARROL RAMIREZ DO BIRTHDATE: [birth year] ELI FUENTES MD CM:DELPHINE [id number] CARROL RAMIREZ DO 01/01/19 1453 interface
--- NOTE | ~2018-12-29 | PR ---
[place], [place] PROGRESS NOTE NAME: RAVINDER LLANES UNIT #: [id number] ROOM: 407 DOCTOR: ELI LESTER MD BIRTHDATE: [birth year] DOS: 12/31/2018 PULMONARY ADDENDUM NOTE SUBJECTIVE: The patient independently seen and examined in a [id number] encounter, history was confirmed. Physical examination performed. Labs were reviewed. Note done by the esthetician and manager medical spa approved as well. Assessment and management of today's visit was personally completed. The patient was comfortably resting at this time, sitting on the bed. He has not been reporting any symptoms of acute shortness of breath, coughing, chest pain or sputum expectoration. The patient has stress testing completed yesterday. OBJECTIVE: VITAL SIGNS: For the patient this morning, normal temperature, respiratory rate 20, heart rate 70, blood pressure 134/76. Pulse oxygen saturation on room air 93% saturation recorded. HEENT: Head was atraumatic. Eyes, nonicterus. NECK: Supple. CARDIOVASCULAR: S1, S2 is audible. LUNGS: The patient was noted without any wheezing or crackles at this time. Breaths are noted clear in the lungs bilaterally. ABDOMEN: Soft, nontender. Bowel sounds present. EXTREMITIES: The patient was noted without any acute edema. IMAGING DATA: The stress testing nuclear medicine part for the patient was reported left ventricular ejection fraction of 55%. Abnormal stress test noted with distribution of right coronary and circumflex artery distribution, abnormal segmental motion. Chest x-ray that was done this morning for the patient was noted as no acute pulmonary abnormality, change of COPD, hyperinflation were seen. IMPRESSION: Stable respiratory status was noted at the present time for this patient is being treated for this patient for congestive heart failure with history of stable bronchial asthma without acute exacerbation. PLAN OF MANAGEMENT: From the pulmonary standpoint, the patient could be discharged home whenever desired and asked to resume his previous usual medication on bronchial asthma without any changes. Supportive care, plan of treatment. [place], [place] PROGRESS NOTE NAME: RAVINDER LLANES [place] UNIT #: [id number] ROOM: 407 DOCTOR: ELI LESTER MD BIRTHDATE: [birth year] ELI FUENTES MD CM:PNTRANS [id number] ELI MURRELL MD 01/01/19 0236 interface
--- NOTE | ~2018-12-29 | EKG ---
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1940 Requested By: MAXIMINO KEARNEY Order Number: [id number] Reading MD: Deepika Tamez MD Measurements Intervals [place] Rate: 77 P: 39 DC: 178 QRS: 69 QRSD: 109 T: -53 QT: 398 QTc: 451 Interpretive Statements Sinus rhythm Nonspecific T abnormalities, inferior leads ILBBB Baseline wander in lead(s) V3,V4 Compared to ECG 06/11/2018 10:36:01 T-wave abnormality now present Atrial premature complex(es) no longer present Intraventricular conduction delay no longer present Electronically Signed On 12-30-2018 8:41:51 PDT by Deepika Tamez MD CM:EKGRPT:ELECTROCARDIOGRAM REPORT [id number] MAXIMINO ZARATE DRAFT REPORT MAXIMINO KEARNEY DO
--- NOTE | ~2018-12-29 | EKG ---
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1940 Requested By: MAXIMINO KEARNEY Order Number: [id number] Reading MD: Deepika Tamez MD Measurements Intervals [place] Rate: 88 P: 33 HI: 186 QRS: 54 QRSD: 109 T: -81 QT: 390 QTc: 472 Interpretive Statements Sinus rhythm Atrial premature complexes Incomplete left bundle branch block Inferior infarct, age indeterminate Baseline wander in lead(s) V2 Compared to ECG 06/11/2018 10:36:01 Left bundle-branch block now present Myocardial infarct finding now present Intraventricular conduction delay no longer present Electronically Signed On 12-30-2018 8:38:59 PDT by Deepika Tamez MD CM:EKGRPT:ELECTROCARDIOGRAM REPORT [id number] MAXIMINO ZARATE DRAFT REPORT MAXIMINO KEARNEY DO
[~2018-12-29 06:43] MED LIST changes: -APRESOLINE10 MG PO; -B-12500 MC1 PO; -COLACE100 MG PO; -IRON325 M3 PO; -PRESERVISION A1 EACH PO; -QVAR REDIHALE10.6 GM INH; -VITAMIN D22000 UNIT PO
[2018-12-29 06:55] LABS: BASO # 0.1 10*3/uL (0.0-0.1); BASO % 0.4 % (0.0-1.0); EOS # 0.1 10*3/uL (0.0-0.4); EOS % 0.3 % (1.0-4.0); HEMATOCRIT 48.7 % (42.0-52.0); LYMPH # 1.8 10*3/uL (1.3-4.4); LYMPH % 11.3 % (27.0-41.0); MEAN CELL VOLUME 92.2 fl (80.0-94.0); MEAN CORPUSCULAR HGB 30.3 pg (27.0-31.0); MEAN CORPUSCULAR HGB CONC 32.9 g/dl (33.0-37.0); MEAN PLATELET VOLUME 10.3 fl (9.6-12.3); MONO # 0.7 10*3/uL (0.1-1.0); MONO % 4.6 % (3.0-9.0); NEUT # 13.4 10*3/uL (2.3-7.9); PLATELET COUNT AUTOMATED 246 10*3/uL (130-400); RED BLOOD COUNT 5.28 10*6/uL (4.50-5.90); RED CELL DISTRI WIDTH 14.1 % (0-14.5); WHITE BLOOD COUNT 16.2 10*3/uL (4.8-10.8)
[2018-12-29] MEDS ORDERED: APRESOLINE10 MG PO (06:56)
[2018-12-29 07:06] LABS: ACT PARTIAL THROMBO TIME 23.3 SECONDS (20.0-32.1); INTERNATIONAL NORM RATIO 0.9 (2.0-3.5)
[2018-12-29 07:13] LABS: ALBUMIN 3.5 gm/dl (3.1-4.5); ALKALINE PHOSPHATASE 135 U/L (45-117); BUN 15 mg/dl (7-24); CHLORIDE 107 mmol/L (98-107); CREATININE 1.27 mg/dL (0.70-1.30); POTASSIUM 3.8 mmol/L (3.5-5.1); SGOT/AST 18 IU/L (3-35); SGPT/ALT 29 U/L (12-78); SODIUM 142 mmol/L (136-145)
[2018-12-29 07:15] LABS: TROPONIN I < 0.015 ng/ml (<0.045)
[2018-12-29] MEDS ORDERED: B-12500 MC1 PO (09:02)
[2018-12-29] MEDS ORDERED: VITAMIN D22000 UNIT PO (09:04)
[2018-12-29] MEDS ORDERED: IRON325 M3 PO (09:05)
[2018-12-29] MEDS ORDERED: QVAR REDIHALE10.6 GM INH (09:07)
[2018-12-29] MEDS ORDERED: PRESERVISION A1 EACH PO (09:07)
[2018-12-29] MEDS ORDERED: COLACE100 MG PO (09:08)
[2018-12-29 11:14] LABS: BILIRUBIN NEGATIVE (NEGATIVE); BLOOD NEGATIVE (NEGATIVE); CLARITY CLEAR (CLEAR); COLOR YELLOW (YELLOW); GLUCOSE NEGATIVE (NEGATIVE); KETONE NEGATIVE (NEGATIVE); LEUKO ESTERASE NEGATIVE (NEGATIVE); NITRITE NEGATIVE (NEGATIVE); SPECIFIC GRAVITY 1.015 (1.005-1.030); UROBILINOGEN 0.2 E.U./dl (0.2-1.0)
[2018-12-29 11:21] LABS: BACTERIA TRACE; HYALINE CAST 30-35; RBC 0-2 rbc/hpf (0-2); WBC 0-2 wbc/hpf (0-5)
[2018-12-30] VITALS: BP 109/71
[2018-12-30 06:28] LABS: BASO % 0.3 % (0.0-1.0); EOS % 0.3 % (1.0-4.0); HEMATOCRIT 45.6 % (42.0-52.0); HEMOGLOBIN 15.1 g/dl (14.0-18.0); LYMPH # 1.6 10*3/uL (1.3-4.4); LYMPH % 13.4 % (27.0-41.0); MEAN CELL VOLUME 91.9 fl (80.0-94.0); MEAN CORPUSCULAR HGB 30.4 pg (27.0-31.0); MEAN CORPUSCULAR HGB CONC 33.1 g/dl (33.0-37.0); MEAN PLATELET VOLUME 10.7 fl (9.6-12.3); MONO # 0.8 10*3/uL (0.1-1.0); MONO % 6.9 % (3.0-9.0); NEUT # 9.6 10*3/uL (2.3-7.9); NEUT % 78.8 % (47.0-73.0); PLATELET COUNT AUTOMATED 214 10*3/uL (130-400); RED BLOOD COUNT 4.96 10*6/uL (4.50-5.90); RED CELL DISTRI WIDTH 14.3 % (0-14.5); WHITE BLOOD COUNT 12.2 10*3/uL (4.8-10.8)
[2018-12-30 06:37] LABS: ACT PARTIAL THROMBO TIME 27.1 SECONDS (20.0-32.1)
[2018-12-30 06:59] LABS: ALKALINE PHOSPHATASE 112 U/L (45-117); BUN 22 mg/dl (7-24); CHLORIDE 106 mmol/L (98-107); CHOLESTEROL 139 mg/dL (<200); CREATININE 1.31 mg/dL (0.70-1.30); HDL CHOLESTEROL 46 mg/dl (40-60); LDL CHOLESTEROL 60 mg/dL (9-159); PHOSPHOROUS 4.1 mg/dL (2.5-4.9); POTASSIUM 3.7 mmol/L (3.5-5.1); SGOT/AST 21 IU/L (3-35); SGPT/ALT 21 U/L (12-78); SODIUM 143 mmol/L (136-145); TOTAL PROTEIN 6.5 gm/dL (6.4-8.2); TRIGLYCERIDES 167 mg/dl (<150); VLDL CHOLESTEROL 33 mg/dL (6-40)
[2018-12-30 08:24] LABS: VITAMIN D, 25-HYDROXY 33.7 ng/mL (30-100)
[2018-12-30 12:23] VITALS: BP 144/72
[2018-12-30 16:00] VITALS: BP 125/60
[2018-12-30 20:00] VITALS: BP 126/66
[2018-12-31] VITALS: BP 107/58
[2018-12-31 07:03] LABS: BASO % 0.3 % (0.0-1.0); EOS # 0.1 10*3/uL (0.0-0.4); EOS % 0.9 % (1.0-4.0); HEMATOCRIT 40.9 % (42.0-52.0); HEMOGLOBIN 13.6 g/dl (14.0-18.0); LYMPH # 1.4 10*3/uL (1.3-4.4); LYMPH % 14.6 % (27.0-41.0); MEAN CELL VOLUME 92.5 fl (80.0-94.0); MEAN CORPUSCULAR HGB 30.8 pg (27.0-31.0); MEAN CORPUSCULAR HGB CONC 33.3 g/dl (33.0-37.0); MEAN PLATELET VOLUME 10.8 fl (9.6-12.3); MONO # 0.9 10*3/uL (0.1-1.0); MONO % 9.3 % (3.0-9.0); NEUT # 7.2 10*3/uL (2.3-7.9); NEUT % 74.5 % (47.0-73.0); PLATELET COUNT AUTOMATED 192 10*3/uL (130-400); RED BLOOD COUNT 4.42 10*6/uL (4.50-5.90); RED CELL DISTRI WIDTH 14.1 % (0-14.5); WHITE BLOOD COUNT 9.7 10*3/uL (4.8-10.8)
[2018-12-31 07:32] LABS: CHLORIDE 106 mmol/L (98-107); POTASSIUM 3.5 mmol/L (3.5-5.1); SODIUM 140 mmol/L (136-145)
[2018-12-31 07:53] LABS: ALBUMIN 2.9 gm/dl (3.1-4.5); ALKALINE PHOSPHATASE 106 U/L (45-117); BUN 17 mg/dl (7-24); CREATININE 1.27 mg/dL (0.70-1.30); SGOT/AST 16 IU/L (3-35); SGPT/ALT 18 U/L (12-78); TOTAL PROTEIN 6.4 gm/dL (6.4-8.2)
[2018-12-31 08:00] VITALS: BP 134/76
[2018-12-31 12:00] VITALS: BP 126/72
== END 2018-12-31 13:10 | disposition home or self-care (01) | DRG 280 ==
LOC: ED 06:43 → 4E 08:36 → EDHOLD 08:36 → 4E 08:39
PROVIDERS: Internal Medicine; Student in an Organized Health Care Education/Training Program; ADMIT Emergency Medicine
PROC: 4A02XM4 Measurement of Cardiac Total Activity, External Approach (ICD-10-PCS; principal; 2018-12-30)
PROC: 3E073KZ Introduction of Other Diagnostic Substance into Coronary Artery, Percutaneous Approach (ICD-10-PCS; principal; 2018-12-30)
DX: I21.9 Acute myocardial infarction, unspecified (principal); I50.43 Acute on chronic combined systolic (congestive) and diastolic (congestive) heart failure; R65.10 Systemic inflammatory response syndrome (SIRS) of non-infectious origin without acute organ dysfunction; I13.0 Hypertensive heart and chronic kidney disease with heart failure and stage 1 through stage 4 chronic kidney disease, or unspecified chronic kidney disease; N17.9 Acute kidney failure, unspecified; I31.3 Pericardial effusion (noninflammatory); J44.9 Chronic obstructive pulmonary disease, unspecified; E78.5 Hyperlipidemia, unspecified; F43.10 Post-traumatic stress disorder, unspecified; I44.7 Left bundle-branch block, unspecified; J45.30 Mild persistent asthma, uncomplicated; I35.1 Nonrheumatic aortic (valve) insufficiency; N18.3 Chronic kidney disease, stage 3 (moderate); R74.8 Abnormal levels of other serum enzymes; I25.10 Atherosclerotic heart disease of native coronary artery without angina pectoris; K21.9 Gastro-esophageal reflux disease without esophagitis; F41.9 Anxiety disorder, unspecified; R09.1 Pleurisy; R73.9 Hyperglycemia, unspecified; R73.03 Prediabetes; E55.9 Vitamin D deficiency, unspecified; E66.3 Overweight; I25.2 Old myocardial infarction; Z95.5 Presence of coronary angioplasty implant and graft; Z79.82 Long term (current) use of aspirin; Z85.51 Personal history of malignant neoplasm of bladder; Z87.440 Personal history of urinary (tract) infections; Z98.42 Cataract extraction status, left eye; Z87.891 Personal history of nicotine dependence; Z82.0 Family history of epilepsy and other diseases of the nervous system; Z79.899 Other long term (current) drug therapy; Z68.27 Body mass index [BMI] 27.0-27.9, adult

== ENCOUNTER → 2019-01-16 | Outpatient (CLI) | payer MEDICARE ==
[~2019-01-16] MED LIST changes: +APRESOLINE10 MG PO; +B-12500 MC1 PO; +COLACE100 MG PO; +IRON325 M3 PO; +PRESERVISION A1 EACH PO; +QVAR REDIHALE10.6 GM INH; +VITAMIN D22000 UNIT PO
== END | disposition home or self-care (01) ==
LOC: RESCLI 00:36
DX: I25.10 Atherosclerotic heart disease of native coronary artery without angina pectoris (principal); I11.0 Hypertensive heart disease with heart failure; I50.42 Chronic combined systolic (congestive) and diastolic (congestive) heart failure; E78.49 Other hyperlipidemia; K21.9 Gastro-esophageal reflux disease without esophagitis; E55.9 Vitamin D deficiency, unspecified; D50.9 Iron deficiency anemia, unspecified; Z79.899 Other long term (current) drug therapy; Z88.8 Allergy status to other drugs, medicaments and biological substances; Z87.891 Personal history of nicotine dependence

== ENCOUNTER → 2019-02-11 | Outpatient (CLI) | payer MEDICARE ==
[2019-02-11 12:07] LABS: BUN 9 mg/dl (7-24); CHLORIDE 108 mmol/L (98-107); POTASSIUM 3.9 mmol/L (3.5-5.1); SODIUM 142 mmol/L (136-145)
== END | disposition home or self-care (01) ==
LOC: LAB 10:44
PROVIDERS: Internal Medicine Cardiovascular Disease
DX: I11.0 Hypertensive heart disease with heart failure (principal); I50.42 Chronic combined systolic (congestive) and diastolic (congestive) heart failure

== ENCOUNTER → 2019-04-01 | Outpatient (CLI) | payer MEDICARE | END | disposition home or self-care (01) | LOC: RESCLI 01:45 | DX: I25.10 Atherosclerotic heart disease of native coronary artery without angina pectoris (principal); F43.10 Post-traumatic stress disorder, unspecified; I13.0 Hypertensive heart and chronic kidney disease with heart failure and stage 1 through stage 4 chronic kidney disease, or unspecified chronic kidney disease; I50.42 Chronic combined systolic (congestive) and diastolic (congestive) heart failure; N18.3 Chronic kidney disease, stage 3 (moderate); E55.9 Vitamin D deficiency, unspecified; J44.9 Chronic obstructive pulmonary disease, unspecified; K21.9 Gastro-esophageal reflux disease without esophagitis; C67.2 Malignant neoplasm of lateral wall of bladder; R53.83 Other fatigue; E66.3 Overweight; G25.0 Essential tremor; D50.9 Iron deficiency anemia, unspecified; E78.5 Hyperlipidemia, unspecified; Z79.899 Other long term (current) drug therapy; Z88.8 Allergy status to other drugs, medicaments and biological substances ==

== ENCOUNTER → 2019-07-17 | Outpatient (CLI) | payer MEDICARE | END | disposition home or self-care (01) | LOC: RESCLI 00:46 | DX: I25.10 Atherosclerotic heart disease of native coronary artery without angina pectoris (principal); F43.10 Post-traumatic stress disorder, unspecified; I13.0 Hypertensive heart and chronic kidney disease with heart failure and stage 1 through stage 4 chronic kidney disease, or unspecified chronic kidney disease; I50.42 Chronic combined systolic (congestive) and diastolic (congestive) heart failure; N18.3 Chronic kidney disease, stage 3 (moderate); E55.9 Vitamin D deficiency, unspecified; J44.9 Chronic obstructive pulmonary disease, unspecified; K21.9 Gastro-esophageal reflux disease without esophagitis; C67.2 Malignant neoplasm of lateral wall of bladder; E66.3 Overweight; G25.0 Essential tremor; D50.9 Iron deficiency anemia, unspecified; E78.5 Hyperlipidemia, unspecified; R53.83 Other fatigue; Z79.899 Other long term (current) drug therapy; Z87.891 Personal history of nicotine dependence ==

== ENCOUNTER → 2020-01-15 | Outpatient (CLI) | payer MEDICARE ==
[2020-01-15 14:17] LABS: BASO # 0.1 10*3/uL (0.0-0.1); BASO % 0.5 % (0.0-1.0); EOS # 0.2 10*3/uL (0.0-0.4); EOS % 1.8 % (1.0-4.0); HEMATOCRIT 42.5 % (42.0-52.0); LYMPH # 1.9 10*3/uL (1.3-4.4); LYMPH % 20.2 % (27.0-41.0); MEAN CELL VOLUME 90.8 fl (80.0-94.0); MEAN CORPUSCULAR HGB 30.1 pg (27.0-31.0); MEAN CORPUSCULAR HGB CONC 33.2 g/dl (33.0-37.0); MEAN PLATELET VOLUME 10.5 fl (9.6-12.3); MONO # 0.8 10*3/uL (0.1-1.0); MONO % 8.1 % (3.0-9.0); NEUT # 6.4 10*3/uL (2.3-7.9); NEUT % 69.1 % (47.0-73.0); PLATELET COUNT AUTOMATED 248 10*3/uL (130-400); RED BLOOD COUNT 4.68 10*6/uL (4.50-5.90); RED CELL DISTRI WIDTH 13.1 % (0-14.5); WHITE BLOOD COUNT 9.2 10*3/uL (4.8-10.8)
[2020-01-15 14:55] LABS: BUN 14 mg/dl (7-24); CHLORIDE 112 mmol/L (98-107); POTASSIUM 4.1 mmol/L (3.5-5.1); SODIUM 142 mmol/L (136-145)
[2020-01-15 14:59] LABS: CHOLESTEROL 147 mg/dL (<200); CREATININE 1.22 mg/dL (0.70-1.30); HDL CHOLESTEROL 55 mg/dl (40-60); LDL CHOLESTEROL 60 mg/dL (9-159); TRIGLYCERIDES 158 mg/dl (<150); VLDL CHOLESTEROL 32 mg/dL (6-40)
[2020-01-15 15:00] LABS: VITAMIN D, 25-HYDROXY 37.3 ng/mL (30-100)
== END | disposition home or self-care (01) ==
LOC: RESCLI 00:45
PROVIDERS: Internal Medicine
DX: I25.10 Atherosclerotic heart disease of native coronary artery without angina pectoris (principal); I10 Essential (primary) hypertension; J44.9 Chronic obstructive pulmonary disease, unspecified; E55.9 Vitamin D deficiency, unspecified; D50.9 Iron deficiency anemia, unspecified; I50.42 Chronic combined systolic (congestive) and diastolic (congestive) heart failure; E78.5 Hyperlipidemia, unspecified; K59.00 Constipation, unspecified; K21.9 Gastro-esophageal reflux disease without esophagitis

== ENCOUNTER → 2020-03-26 | Outpatient (CLI) | payer MEDICARE | END | disposition home or self-care (01) | LOC: RESCLI 02:45 | PROVIDERS: ATTEND Internal Medicine | DX: I25.10 Atherosclerotic heart disease of native coronary artery without angina pectoris (principal); J44.9 Chronic obstructive pulmonary disease, unspecified; E55.9 Vitamin D deficiency, unspecified; D50.9 Iron deficiency anemia, unspecified; K59.00 Constipation, unspecified; I11.0 Hypertensive heart disease with heart failure; I50.42 Chronic combined systolic (congestive) and diastolic (congestive) heart failure; K21.9 Gastro-esophageal reflux disease without esophagitis; E78.5 Hyperlipidemia, unspecified; E78.49 Other hyperlipidemia; Z79.899 Other long term (current) drug therapy; Z98.890 Other specified postprocedural states ==

== ENCOUNTER → 2020-08-13 | Outpatient (CLI) | payer MEDICARE ==
[2020-08-13 15:50] LABS: BASO # 0.1 10*3/uL (0.0-0.1); BASO % 0.5 % (0.0-1.0); EOS # 0.2 10*3/uL (0.0-0.4); EOS % 1.8 % (1.0-4.0); HEMATOCRIT 45.7 % (42.0-52.0); LYMPH # 1.9 10*3/uL (1.3-4.4); LYMPH % 20.3 % (27.0-41.0); MEAN CORPUSCULAR HGB 30.8 pg (27.0-31.0); MEAN CORPUSCULAR HGB CONC 32.4 g/dl (33.0-37.0); MEAN PLATELET VOLUME 10.4 fl (9.6-12.3); MONO # 0.8 10*3/uL (0.1-1.0); MONO % 8.8 % (3.0-9.0); NEUT # 6.5 10*3/uL (2.3-7.9); NEUT % 68.3 % (47.0-73.0); PLATELET COUNT AUTOMATED 240 10*3/uL (130-400); RED BLOOD COUNT 4.81 10*6/uL (4.50-5.90); RED CELL DISTRI WIDTH 13.3 % (0-14.5); WHITE BLOOD COUNT 9.5 10*3/uL (4.8-10.8)
[2020-08-13 16:02] LABS: BUN 14 mg/dl (7-24); CHLORIDE 110 mmol/L (98-107); CREATININE 1.32 mg/dL (0.70-1.30); POTASSIUM 3.9 mmol/L (3.5-5.1); SODIUM 142 mmol/L (136-145)
[2020-08-13 16:05] LABS: CHOLESTEROL 159 mg/dL (<200); HDL CHOLESTEROL 58 mg/dl (40-60); LDL CHOLESTEROL 64 mg/dL (9-159); TRIGLYCERIDES 185 mg/dl (<150); VLDL CHOLESTEROL 37 mg/dL (6-40)
== END | disposition home or self-care (01) ==
LOC: RESCLI 01:50
PROVIDERS: Internal Medicine; ATTEND Internal Medicine
DX: I25.10 Atherosclerotic heart disease of native coronary artery without angina pectoris (principal); J44.9 Chronic obstructive pulmonary disease, unspecified; E55.9 Vitamin D deficiency, unspecified; I11.0 Hypertensive heart disease with heart failure; I50.42 Chronic combined systolic (congestive) and diastolic (congestive) heart failure; D50.9 Iron deficiency anemia, unspecified; K59.00 Constipation, unspecified; E78.5 Hyperlipidemia, unspecified; K21.9 Gastro-esophageal reflux disease without esophagitis; Z79.82 Long term (current) use of aspirin; Z79.899 Other long term (current) drug therapy; Z95.828 Presence of other vascular implants and grafts; Z98.890 Other specified postprocedural states

== ENCOUNTER → 2020-11-25 | Outpatient (CLI) | payer MEDICARE | END | disposition home or self-care (01) | LOC: RESCLI 01:45 | PROVIDERS: ATTEND Internal Medicine | DX: I11.0 Hypertensive heart disease with heart failure (principal); I50.42 Chronic combined systolic (congestive) and diastolic (congestive) heart failure; I25.10 Atherosclerotic heart disease of native coronary artery without angina pectoris; K21.9 Gastro-esophageal reflux disease without esophagitis; E78.5 Hyperlipidemia, unspecified; K59.00 Constipation, unspecified; E55.9 Vitamin D deficiency, unspecified; J44.9 Chronic obstructive pulmonary disease, unspecified; E78.00 Pure hypercholesterolemia, unspecified; D50.9 Iron deficiency anemia, unspecified; Z79.82 Long term (current) use of aspirin; Z98.890 Other specified postprocedural states; Z95.828 Presence of other vascular implants and grafts; Z87.891 Personal history of nicotine dependence ==

== ENCOUNTER 2021-04-14 12:04 | Inpatient (IN) | payer OTHER ==
[~2021-04-14] VITALS: Ht 180.3 cm; Wt 78.9 kg
[~2021-04-14 12:04] MED LIST changes: +ALDACTONE25 MG PO; +ASPIRIN ADULT L81 M2 PO; -ASPIRIN325 M2 PO; +FUROSEMIDE40 MG PO
[2021-04-14 16:00] VITALS: BP 109/76
[2021-04-14 20:00] VITALS: BP 155/77
[2021-04-15 08:00] VITALS: BP 129/82
[2021-04-15 12:00] VITALS: BP 124/78
[2021-04-15 16:00] VITALS: BP 143/79
[2021-04-15 20:00] VITALS: BP 157/73
[2021-04-16] VITALS: BP 142/57
[2021-04-16 08:00] VITALS: BP 133/79
[2021-04-16 16:00] VITALS: BP 125/61
[2021-04-17] VITALS: BP 106/87
[2021-04-17 08:00] VITALS: BP 136/90
[2021-04-17 16:00] VITALS: BP 84/66
[2021-04-18] VITALS: BP 131/67
[2021-04-18 08:00] VITALS: BP 109/47
[2021-04-18 16:00] VITALS: BP 120/72
== END 2021-04-19 01:04 | DRG 871 ==
LOC: 4E 12:04
PROVIDERS: ADMIT Student in an Organized Health Care Education/Training Program; ATTEND Student in an Organized Health Care Education/Training Program
DX: A41.9 Sepsis, unspecified organism (principal); G93.41 Metabolic encephalopathy; I50.43 Acute on chronic combined systolic (congestive) and diastolic (congestive) heart failure; I21.4 Non-ST elevation (NSTEMI) myocardial infarction; J96.00 Acute respiratory failure, unspecified whether with hypoxia or hypercapnia; U07.1 COVID-19; J12.82 Pneumonia due to coronavirus disease 2019; N17.0 Acute kidney failure with tubular necrosis; E43 Unspecified severe protein-calorie malnutrition; E87.2 Acidosis; I48.91 Unspecified atrial fibrillation; Z51.5 Encounter for palliative care; E87.6 Hypokalemia; R74.01 Elevation of levels of liver transaminase levels; R73.9 Hyperglycemia, unspecified; J41.0 Simple chronic bronchitis; I11.0 Hypertensive heart disease with heart failure; F43.10 Post-traumatic stress disorder, unspecified; I25.10 Atherosclerotic heart disease of native coronary artery without angina pectoris; Z87.891 Personal history of nicotine dependence